=== PATIENT | female | born 1970 | race Two or more races ===

== ENCOUNTER 2020-12-02 12:06 | Outpatient (CLI) | payer BC | END 2020-12-02 12:16 | disposition home or self-care (01) | LOC: LAB 12:06 | PROVIDERS: ATTEND Obstetrics & Gynecology | DX: I10 Essential (primary) hypertension (principal); E11.9 Type 2 diabetes mellitus without complications; E78.49 Other hyperlipidemia; E03.8 Other specified hypothyroidism ==

== ENCOUNTER 2020-12-09 08:12 | Day surgery (SDC) | payer BC | END 2020-12-09 12:59 | disposition home or self-care (01) | LOC: AMB-ENDOS 08:12 | PROVIDERS: ATTEND Surgery | DX: K62.89 Other specified diseases of anus and rectum (principal); Z20.822 Contact with and (suspected) exposure to COVID-19 ==

== ENCOUNTER 2022-06-27 19:35 | Emergency (ER) | payer OTHER ==
[~2022-06-27] VITALS: Ht 152.4 cm; Wt 54.4 kg
[2022-06-27] MEDS ORDERED: VERAPAMIL HCL120 M1 PO (19:55)
[2022-06-27] MEDS ORDERED: ATORVASTATIN CA20 MG PO (19:55)
== END 2022-06-28 06:03 | disposition home or self-care (01) ==
LOC: ER 19:35
DX: R10.31 Right lower quadrant pain (principal)